=== PATIENT | female | born 1960 | race Asian ===

== ENCOUNTER 2017-05-06 02:00 | Emergency (ER) | payer OTHER ==
[~2017-05-06] VITALS: Ht 154.9 cm; Wt 63.0 kg
[~2017-05-06 02:00] MED LIST: ATEN25 PO; hydrochlorothiazide PO
[2017-05-06 02:44] VITALS: BP 125/89
== END 2017-05-06 04:00 | disposition left against medical advice (07) ==
LOC: EMS 02:01 → EEVIPCON 02:01 → EMS 04:00
DX: R21 Rash and other nonspecific skin eruption (principal); Z53.21 Procedure and treatment not carried out due to patient leaving prior to being seen by health care provider

== ENCOUNTER 2020-05-31 05:24 | Emergency (ER) | payer OTHER ==
[~2020-05-31] VITALS: Ht 154.9 cm; Wt 68.2 kg
[~2020-05-31 05:24] MED LIST changes: +ATEN-73 PO; -ATEN25 PO
[2020-05-31] MEDS ORDERED: SIMV-259 PO (05:28)
[2020-05-31 06:45] VITALS: BP 133/60
[2020-05-31] MEDS ORDERED: IBUPROFEN 600 MG TABLET PO ONE (06:45)
== END 2020-05-31 06:44 | disposition home or self-care (01) ==
LOC: EMS 05:24
DX: M54.6 Pain in thoracic spine (principal); M25.511 Pain in right shoulder; M25.512 Pain in left shoulder; I10 Essential (primary) hypertension; E78.00 Pure hypercholesterolemia, unspecified; Z91.013 Allergy to seafood; Z79.899 Other long term (current) drug therapy; V43.52XA Car driver injured in collision with other type car in traffic accident, initial encounter; Y93.89 Activity, other specified; Y92.89 Other specified places as the place of occurrence of the external cause; Y99.8 Other external cause status